=== PATIENT | male | born 1995 | race Two or more races ===

== ENCOUNTER 2024-07-15 17:19 | Emergency (ER) | payer OTHER ==
[~2024-07-15] VITALS: Ht 185.4 cm; Wt 86.3 kg
--- NOTE | 2024-07-15 17:26 | ED.PDOC ---
Musculoskeletal HPI Comments HPI: Poor Historian. HPI: 29-year-old male presents with a chief complaint of lacerations to 2nd, 3rd, and 4th digits to his left hand. Patient is a machinist apprentice and states that he attempted to fix the machine while it was cutting metal and "felt something snatch my hand". Patient does not have any amputations to his fingers, but does have lacerations to them. Patient denies use of alcohol or drug use prior to the incident. Patient was evaluated immediately in case he was hemorrhaging from his digits. Tourniquets were applied to all three digits control of bleed. The wounds were washed and irrigated. Later, Forearm blood pressure manual cuff was used to control the bleeding and the tourniquets were removed because patient began to experience discomfort in his fingers. Injury occurred at work at approximately 4:50 p.m. He is not sure by his tetanus status. PMHx: None PSHx: None Allergies: None Initial Vital Signs: BP: HR: Temp: SpO2: RR: REVIEW OF SYSTEMS: CONSTITUTIONAL: Denies acute: fever, diaphoresis, chills, generalized weakness. HEAD: Denies acute: headache, photophobia Eyes: Denies acute: Double vision, vision loss, eye pain, eye discharge. EARS: Denies acute: tinnitus, hearing loss, ear discharge, ear pain, THROAT: Denies acute: sore throat, swelling, difficulty swallowing , pain with swallowing, change in voice. NECK: Denies acute: neck pain, neck swelling, stiff neck. HEART: Denies acute : chest pain, palpitations, LUNGS: Denies acute: SOB, wheezing, cough, hemoptysis ABDOMEN: Denies acute: abdominal pain, Nausea, Vomiting, diarrhea, melena , hematemesis, hematochezia SKIN: Denies acute: rash, redness, lesions, itchiness. EXTREMITIES: Denies acute: calf pain, numbness, tingling, weakness, Denies acute: Low back pain. Neuro: Denies acute: focal neurological deficit, motor or sensory focal neurological deficit, tremors, seizure like activity, confusion, dizziness, change in mental status, loss of bowel or bladder function, cauda equina like symptoms. : Denies acute: dysuria, hematuria, flank pain, increase in urinary frequency. PSYCH: Denies acute: hallucination, suicidal ideation, homicidal ideation. PHYSICAL EXAM: General: Moderate to severe acute distress, awake and alert. Head: normocephalic, atraumatic. Neck: supple, trachea is midline, no swelling. Throat: Normal phonation. Eyes:, no erythema, no purulent discharge, no proptosis, no icterus. Heart: regular tachycardic, because of pain, no significant murmur appreciated. Lungs: no apparent respiratory distress, Able to speak in full sentences. No wheezing, no rhonchi, no crackles. No stridors Clear to auscultation bilaterally. Abdomen: non tender to palpation, non distended, soft, no guarding, no rebound, + bowel sounds. Neuro: Awake, Alert, oriented to name, self, situation, follows commands GCS=15. Speech is normal. Skin: no petechia, no purpura, no cyanosis, non-pale, not jaundice. Lower extremities: --no - Pitting edema no deformity, no focal swelling, no calf TTP. Makes eye contact. moves all four extremities. Face: no apparent facial droop. Ambulating in the ED independently. Patient is neurovascularly intact in the affected extremity. Radial pulses palpable. Muscle education administrator is intact. Patient able to flex and extend all digits of the left hand. No apparent evidence of tendon or ligamental injury. The index finger is missing a chunk of tissue and the skin laceration edges can not be approximated. Lidocaine 1% was used for local anesthesia. A total of 10 cc were used to block all three digits at the base of each digit. Sterile techniques were used throughout the procedure. 3.0 ethylon sutures were used. For sutures will placed on the ring finger and four sutures were placed on the middle finger. The index finger who that is missing tissue and piece of the tip of the index finger. Bacitracin ointment was applied and Surgicel and gauze wrapping. Each laceration was approximately 1.5 cm in each finger The left index: Bacitracin was applied and Surgicel and gauze and dressing was applied. The remainder to digits also had wound dressing on it. Patient was given wound care instructions. Time Seen by MD: 17:13 Reviewed Notes: Medications, Allergies Allergies: Coded Allergies: NO KNOWN ALLERGIES (Unverified , 07/15/24) Home Meds Active Scripts Cephalexin Monohydrate (Cephalexin) 500 Mg Cap, 500 MG PO Q6HR for 5 Days, #20 CAP Prov:SANFORD GRAHAM DO 07/15/24 Information Source: Patient Mode of Arrival: Ambulatory Location: Left Past Medical History PAST MEDICAL HISTORY: Denies Surgical History: Denies all surgeries Family History Family History: Reviewed,noncontributory to illness Social History Smoker: Cigarettes Alcohol: Denies ETOH Use Drugs: Denies Drug Use Lives In: Home Was a procedure done? Was a procedure done?: Yes Sedation Sedation?: No Informed consent obtained: Yes Laceration Repair : Length 1.5 cm in each digit Anesthetic: Lidocaine, Without epi, Digital nerve block Laceration Repair Prep: Saline, Betadine Laceration Repair Wound Comple: epidermis/dermis repair Informed consent obtained: Yes Risks, benefits, and alternati: Yes Notes Lidocaine 1% was used for local anesthesia. A total of 10 cc were used to block all three digits at the base of each digit. Sterile techniques were used throughout the procedure. 3.0 ethylon sutures were used. For sutures will placed on the ring finger and four sutures were placed on the middle finger. The index finger who that is missing tissue and piece of the tip of the index finger. Bacitracin ointment was applied and Surgicel and gauze wrapping. Each laceration was approximately 1.5 cm in each finger Differential Diagnosis EXT Differential Diagnosis: Compartment Syndrome, Fracture, Dislocation, Contusion, Neurovascular injury, Other (Foreign body retention, infection, tendon and liga mental injury.) X-Ray, Labs, Meds, VS Vital Signs Date Time Temp Pulse Resp B/P (MAP) Pulse Ox O2 Delivery O2 Flow Rate FiO2 07/16/24 00:30 98.2 73 20 136/78 (97) 97 98.2 07/16/24 00:30 73 20 97 Room Air 07/15/24 19:15 131/64 07/15/24 18:09 145/105 07/15/24 17:36 97.8 92 25 118/66 (83) 98 Current Medications Medications (Trade) Dose Ordered Sig/David Route Start Time Stop Time Status Last Admin Fentanyl Citrate 100 mcg ONCE ONCE IV 07/15/24 17:30 07/15/24 17:31 DC 07/15/24 18:09 Sodium Chloride 1,000 ml @ 1,000 mls/hr Q1H ONCE IV 07/15/24 17:30 07/15/24 18:29 DC 07/15/24 18:07 Cefazolin Sodium 50 ml @ 100 mls/hr ONCE ONCE IV 07/15/24 17:30 07/15/24 17:59 DC 07/15/24 18:07 Diphtheria/ Tetanus/Acell Pertussis (Boostrix T-Dap) 0.5 ml ONCE ONCE IM 07/15/24 17:30 07/15/24 17:31 DC 07/15/24 18:27 Acetaminophen/ Hydrocodone Bitart ([place] 5/325MG Tab) 1 tab ONCE ONCE PO 07/15/24 18:15 07/15/24 18:16 DC 07/15/24 18:25 Fentanyl Citrate 100 mcg ONCE ONCE IV 07/15/24 19:15 07/15/24 19:16 DC 07/15/24 19:15 Bacitracin 1 applic ONCE ONCE TOP 07/15/24 19:45 07/15/24 19:46 DC 07/15/24 19:45 PATIENT: RUFINO DESAI ACCT: [id number] UNIT: [id number] : 1995 LOC: ER ROOM / BED: / AGE / SEX: 29 / M ADM STATUS: REG ER SERVICE 23 ORDERING PHYSICIAN: SANFORD GRAHAM DO PROCEDURE(s): LHAN - L HAND 3V XRAY REASON: trauma ORDER NUMBER(s): [id number], ACCESSION NUMBER(s): [id number] CLINICAL INDICATION: trauma TECHNIQUE: XY L HAND 3V XRAY Comparison: None FINDINGS/IMPRESSION: : There is no evidence of acute fracture or dislocation. Soft tissue irregularity or wounds project dorsally at the volar aspect of the level of the digits. No radiopaque foreign body. Correlate with clinical exam ATED BY: KATERINA PATEL MD DICTATED DATE/TIME: 07/15/241747 SIGNED BY: KATERINA PATEL MD SIGNED DATE/TIME: 07/15/241747 Time of 1ST Reevaluation: 17:43 Reevaluation 1ST: Unchanged Patient Education/Counseling: Diagnosis, Treatment, Prognosis Family Education/Counseling: Diagnosis, Treatment, Prognosis Departure 1 Departure Time of Disposition: 20:47 Impression: Primary Impression: Finger laceration with complication Additional Impression: Finger amputation, traumatic Disposition: HOME / SELF CARE / HOMELESS Condition: Stable Additional Instructions: Additional discharge instructions: You MUST follow-up with your primary care/family doctor in 1 to 2 days. If you are unable to see your primary care/family doctor, please return to our emergency room for re-assessment and re-evaluation in 1 to 2 days. Return to the emergency room here in our facility or to the nearest ER [facility] if your symptoms change or worsen. CONSULTATIONS: you MUST Follow-up for consultation as soon as possible with: hand surgeon in 1-2 days. Please call for appointment. You MUST call the consultants office yourself to make an appointment. You may need to arrange that through your insurance and/or your primary/family doctor. If you are unable to see the strategic sourcing consultant in 1 to 2 days, you must return to our emergency room (or any other ER of your choice) for re-assessment and re- evaluation. Adequate fluid hydration. Follow up with the worker's compensation. No heavy lifting or flexion and extension of the hand to allow the stitches to heal well. Do not submerge your hand under liquid in next 48 hours. Suture removal in 5-7 days however led the hand surgeon make the final decision. : e-Prescriptions Cephalexin Monohydrate (Cephalexin) 500 Mg Cap 500 MG PO Q6HR for 5 Days, #20 CAP Prov: SANFORD GRAHAM DO 07/15/24 Discharged With: Self Critical Care Note Critical Care Time?: Yes (45 min-critical care time only) I personally scribed for SANFORD GRAHAM DO ([email or web address]) on 07/15/24 at 17:26. Electronically submitted by Jeremi Desai ([email or web address]). I personally scribed for SANFORD GRAHAM DO ([email or web address]) on 07/15/24 at 18:25. Electronically submitted by Jeremi Desai ([email or web address]). SANFORD GRAHAM DO Jul 15, 2024 17:26
--- NOTE | 2024-07-15 17:51 | DVH ---
CLINICAL INDICATION: trauma TECHNIQUE: XY L HAND 3V XRAY Comparison: None FINDINGS/IMPRESSION: : There is no evidence of acute fracture or dislocation. Soft tissue irregularity or wounds project dorsally at the volar aspect of the level of the digits. No radiopaque foreign body. Correlate with clinical exam
[2024-07-15] MEDS: ceFAZolin 1GM/50ML 50 ML IV ONE (18:07)
[2024-07-15] MEDS: SODIUM CHLORIDE 0.9% 1,000 ML IV ONE (18:07)
[2024-07-15] MEDS: fentaNYL CITRATE 100 MCG/2 ML VL IV ONE ×2 (18:09→19:15)
[2024-07-15] MEDS: HYDROcodone-ACET 5/325MG TAB PO ONE (18:25)
[2024-07-15] MEDS: TETANUS-DIPTH-ACEL PERTUSSIS 0.5ML SYR Tdap IM ONE (18:27)
[2024-07-15] MEDS: BACITRACIN TOP OINT 1 UD PKG TOP ONE (19:45)
[2024-07-15] MEDS ORDERED: CEPH500C PO (20:49)
[2024-07-16 00:30] VITALS: BP 136/78; PULSE 73; RESP 20; TEMP 98.2; O2SAT 97
== END 2024-07-16 00:30 | disposition home or self-care (01) ==
LOC: ER 17:22
DX: S61.211A Laceration without foreign body of left index finger without damage to nail, initial encounter (principal); S61.213A Laceration without foreign body of left middle finger without damage to nail, initial encounter; S61.215A Laceration without foreign body of left ring finger without damage to nail, initial encounter; F17.210 Nicotine dependence, cigarettes, uncomplicated; W31.89XA Contact with other specified machinery, initial encounter; Y93.89 Activity, other specified; Y92.89 Other specified places as the place of occurrence of the external cause; Y99.8 Other external cause status
CPT/HCPCS: 12002; 73130; 90471; 90715; 96365; 96375; 96376; 99291; J0690; J3010